=== PATIENT | female | born 1935 | race Hispanic/Latino ===

== ENCOUNTER 2017-08-18 08:38 | Emergency (ER) | payer MEDICARE ==
[~2017-08-18 08:38] MED LIST: AMLO10TA2 PO; ESOM40CA PO; HYDR-2132 PO; LEVO25TA54 PO; SIMV20TA6 PO; WARF2TAB57 PO
== END 2017-08-18 09:45 | disposition home or self-care (01) ==
LOC: EDH 08:38
DX: S27.898A Other injury of other specified intrathoracic organs, initial encounter (principal); E07.9 Disorder of thyroid, unspecified; I10 Essential (primary) hypertension; E78.5 Hyperlipidemia, unspecified; W01.0XXA Fall on same level from slipping, tripping and stumbling without subsequent striking against object, initial encounter; Y93.01 Activity, walking, marching and hiking; Y92.096 Garden or yard of other non-institutional residence as the place of occurrence of the external cause; Y99.8 Other external cause status
CPT/HCPCS: 71100

== ENCOUNTER 2018-03-21 12:17 | Emergency (ER) | payer MEDICARE ==
[~2018-03-21 12:17] MED LIST changes: -AMLO10TA2 PO; +AMLO10TA6 PO
== END 2018-03-21 14:37 | disposition home or self-care (01) ==
LOC: EDH 12:17
DX: M25.512 Pain in left shoulder (principal); E78.5 Hyperlipidemia, unspecified; I10 Essential (primary) hypertension; E07.9 Disorder of thyroid, unspecified; Z90.710 Acquired absence of both cervix and uterus; Z98.890 Other specified postprocedural states

== ENCOUNTER 2018-07-20 12:00 | Emergency (ER) | payer MEDICARE ==
[~2018-07-20 12:00] MED LIST changes: -AMLO10TA6 PO; +AMLO10TA7 PO
[2018-07-20] MEDS ORDERED: HYDROCODONE/ACETAMINOPHEN 10/325 MG TAB ONE (12:35)
== END 2018-07-20 15:48 | disposition home or self-care (01) ==
LOC: EDH 12:00
DX: S20.211A Contusion of right front wall of thorax, initial encounter (principal); S60.212A Contusion of left wrist, initial encounter; E78.5 Hyperlipidemia, unspecified; I10 Essential (primary) hypertension; E07.9 Disorder of thyroid, unspecified; W17.89XA Other fall from one level to another, initial encounter; Y93.01 Activity, walking, marching and hiking; Y92.89 Other specified places as the place of occurrence of the external cause; Y99.8 Other external cause status
CPT/HCPCS: 29125; 71250; 73110

== ENCOUNTER 2019-05-17 07:46 | Emergency (ER) | payer MEDICARE ==
[~2019-05-17 07:46] MED LIST changes: +SIMV-43 PO; -SIMV20TA6 PO
[2019-05-17 08:29] LABS: BASOPHILS % (AUTO) 0.6 % (0.0-5.0); EOSINOPHILS % (AUTO) 3.4 % (0.0-8.0); HEMATOCRIT 40.1 % (36-48); LYMPHOCYTES % (AUTO) 21.5 % (21.0-51.0); MEAN CORPUSCULAR HEMOGLOBIN 27.6 pg (27.0-33.0); MEAN CORPUSCULAR HGB CONC 32.9 g/dL (32.0-36.0); MEAN CORPUSCULAR VOLUME 83.7 fL (79-99); MONOCYTES % (AUTO) 6.4 % (3.0-13.0); NEUTROPHILS % (AUTO) 68.1 % (40.0-77.0); NUCLEATED RED BLOOD CELLS 0.1 % (0.0-0.19); PLATELET COUNT (AUTO) 226 K/uL (130-400); RED CELL DISTRIBUTION WIDTH 15.6 % (11.0-15.5); WHITE BLOOD COUNT (AUTO) 9.6 K/uL (4.8-10.8)
[2019-05-17] MEDS ORDERED: KETOROLAC TROMETHAMINE 30MG/ML ONE (08:29)
[2019-05-17] MEDS ORDERED: DIAZEPAM 2 MG TAB ONE (08:29)
[2019-05-17 08:37] LABS: CREATININE 0.6 mg/dL (0.5-1.5); POTASSIUM 3.9 mmol/L (3.5-5.1)
[2019-05-17 08:42] LABS: ALBUMIN 3.6 g/dL (3.5-5.0); BILIRUBIN,DIRECT 0.1 mg/dL (0.0-0.3); BILIRUBIN,TOTAL 0.4 mg/dL (0.2-1.0); TOTAL PROTEIN, SERUM 6.8 g/dL (6.0-8.3)
[2019-05-17 08:47] LABS: APPEARANCE,URINE Clear (CLEAR); BILIRUBIN,URINE Negative (NEGATIVE); COLOR,URINE Yellow (YELLOW); GLUCOSE, URINE (UA) Negative (NEGATIVE); KETONES,URINE Negative (NEGATIVE); LEUKOCYTE ESTERASE ,URINE Moderate (NEGATIVE); NITRATE,URINE Negative (NEGATIVE); OCCULT BLOOD,URINE Negative (NEGATIVE); PROTEIN,URINE Trace mg/dL (NEGATIVE)
[2019-05-17 09:25] LABS: BACTERIA,URINE Many /HPF (None Seen)
[2019-05-17 09:26] LABS: RBC,URINE 0-1 /HPF (0-1)
[2019-05-17] MEDS ORDERED: IOHEXOL-350 50ML VIAL IV ONE (10:11)
== END 2019-05-17 11:10 | disposition home or self-care (01) ==
LOC: EDH 07:46
DX: M54.6 Pain in thoracic spine (principal); J02.9 Acute pharyngitis, unspecified; R05 Cough; E78.5 Hyperlipidemia, unspecified; I10 Essential (primary) hypertension; E07.9 Disorder of thyroid, unspecified; Z90.710 Acquired absence of both cervix and uterus; Z72.0 Tobacco use
CPT/HCPCS: 36415; 71045; 71260; 80048; 80076; 81001; 82550; 84484; 85025; 93005; 96374; 99285; J1885; Q9967

== ENCOUNTER 2020-02-18 12:53 | Emergency (ER) | payer MEDICARE ==
[2020-02-18] MEDS ORDERED: KETOROLAC TROMETHAMINE 15MG/ML ONE (13:32)
[2020-02-18 14:01] LABS: BASOPHILS % (AUTO) 0.7 % (0.0-5.0); EOSINOPHILS % (AUTO) 1.2 % (0.0-8.0); MEAN CORPUSCULAR HEMOGLOBIN 27.7 pg (27.0-33.0); MEAN CORPUSCULAR HGB CONC 31.7 g/dL (32.0-36.0); MEAN CORPUSCULAR VOLUME 87.5 fL (79-99); MONOCYTES % (AUTO) 6.7 % (3.0-13.0); NEUTROPHILS % (AUTO) 65.3 % (40.0-77.0); PLATELET COUNT (AUTO) 342 K/uL (130-400); RED CELL DISTRIBUTION WIDTH 17.7 % (11.0-15.5); WHITE BLOOD COUNT (AUTO) 12.2 K/uL (4.8-10.8)
[2020-02-18 14:02] LABS: APPEARANCE,URINE Clear (CLEAR); BILIRUBIN,URINE Negative (NEGATIVE); COLOR,URINE Yellow (YELLOW); GLUCOSE, URINE (UA) Negative (NEGATIVE); KETONES,URINE Negative (NEGATIVE); LEUKOCYTE ESTERASE ,URINE Moderate (NEGATIVE); NITRATE,URINE Negative (NEGATIVE); OCCULT BLOOD,URINE Negative (NEGATIVE); PROTEIN,URINE Negative (NEGATIVE); UROBILINOGEN,URINE 0.2 mg/dL (0.2-1.0)
[2020-02-18 14:11] LABS: BACTERIA,URINE Rare /HPF (None Seen); RBC,URINE None Seen /HPF (0-1)
[2020-02-18 14:12] LABS: CREATININE 0.6 mg/dL (0.5-1.5); POTASSIUM 3.8 mmol/L (3.5-5.1)
[2020-02-18 14:17] LABS: ALBUMIN 4.1 g/dL (3.5-5.0); BILIRUBIN,TOTAL 0.5 mg/dL (0.2-1.0); TOTAL PROTEIN, SERUM 7.6 g/dL (6.0-8.3)
[2020-02-18] MEDS ORDERED: CEFTRIAXONE SODIUM 1 GM ONE (14:31)
== END 2020-02-18 14:55 | disposition home or self-care (01) ==
LOC: EDH 12:53
DX: N13.6 Pyonephrosis (principal); E78.5 Hyperlipidemia, unspecified; I10 Essential (primary) hypertension; Z90.49 Acquired absence of other specified parts of digestive tract; Z90.710 Acquired absence of both cervix and uterus
CPT/HCPCS: 36415; 74176; 80053; 81001; 85025; 87088; 96374; 96375; 99284; J0696; J1885

== ENCOUNTER → 2020-06-07 | Outpatient (CLI) | payer OTHER, MEDICARE ==
[~2020-06-07] MED LIST changes: +AMLO-258 PO; -AMLO10TA7 PO; +REGADENOSON 0.4 MG/5 ML PF SYG IVP SCH
== END | disposition home or self-care (01) ==
LOC: SHCH 08:42
PROVIDERS: ATTEND Internal Medicine Cardiovascular Disease
DX: I25.10 Atherosclerotic heart disease of native coronary artery without angina pectoris (principal)
CPT/HCPCS: 78452; 93017; 96374; A9500 ×2; J2785

== ENCOUNTER 2020-06-12 09:00 | Observation (INO) | payer OTHER, MEDICARE ==
[~2020-06-12] VITALS: Ht 152.4 cm; Wt 73.8 kg
[~2020-06-12 09:00] MED LIST changes: -AMLO-258 PO; -ESOM40CA PO; -HYDR-2132 PO; -REGADENOSON 0.4 MG/5 ML PF SYG IVP SCH; -WARF2TAB57 PO
[2020-06-12 11:49] LABS: BASOPHILS % (AUTO) 0.7 % (0.0-5.0); EOSINOPHILS % (AUTO) 2.8 % (0.0-8.0); HEMATOCRIT 42.3 % (36-48); LYMPHOCYTES % (AUTO) 24.1 % (21.0-51.0); MEAN CORPUSCULAR HEMOGLOBIN 26.9 pg (27.0-33.0); MEAN CORPUSCULAR HGB CONC 31.7 g/dL (32.0-36.0); MEAN CORPUSCULAR VOLUME 84.8 fL (79-99); MONOCYTES % (AUTO) 6.5 % (3.0-13.0); NEUTROPHILS % (AUTO) 65.3 % (40.0-77.0); PLATELET COUNT (AUTO) 232 K/uL (130-400); RED BLOOD CELL COUNT(AUTO) 4.99 MIL/uL (4.00-5.50); RED CELL DISTRIBUTION WIDTH 14.4 % (11.0-15.5); WHITE BLOOD COUNT (AUTO) 10.1 K/uL (4.8-10.8)
[2020-06-12 11:58] LABS: CREATININE 0.8 mg/dL (0.5-1.5); POTASSIUM 4.1 mmol/L (3.5-5.1)
[2020-06-12 12:16] LABS: INR 0.91 (0.85-1.15); PROTHROMBIN TIME 9.9 SEC (9.6-11.6)
[2020-06-12 12:28] LABS: APPEARANCE,URINE Clear (CLEAR); BILIRUBIN,URINE Negative (NEGATIVE); COLOR,URINE Yellow (YELLOW); GLUCOSE, URINE (UA) Negative (NEGATIVE); KETONES,URINE Negative (NEGATIVE); LEUKOCYTE ESTERASE ,URINE Small (NEGATIVE); NITRATE,URINE Negative (NEGATIVE); OCCULT BLOOD,URINE Negative (NEGATIVE); PROTEIN,URINE Negative (NEGATIVE)
[2020-06-12 12:39] LABS: BACTERIA,URINE Rare /HPF (None Seen); RBC,URINE 0-1 /HPF (0-1); SQUAMOUS EPITHELIAL CELL,UR Rare /HPF (0-2)
[2020-06-18 11:53] VITALS: BP 190/86
[2020-06-18] MEDS ORDERED: ESOM40CA54 PO (12:21)
[2020-06-18] MEDS ORDERED: LISI-613 PO (12:21)
[2020-06-19] VITALS (20 sets, daily range): BP systolic 101–163; BP diastolic 51–82
[2020-06-19] MEDS: CEFAZOLIN SODIUM 1 GM VIAL IVP SCH ×3 (06:00→23:33)
[2020-06-19] MEDS ORDERED: LACTATED RINGERS 1000ML 1,000 ML IV ONE (10:57)
[2020-06-19] MEDS ORDERED: VANCOMYCIN 1.5 GM in SODIUM CHLORIDE 0.9% 250 ML IV SCH (11:15)
[2020-06-19] MEDS ORDERED: ACETAMINOPHEN EXTRA STRENGTH 500 MG TABLET ONE (15:17)
[2020-06-19] MEDS ORDERED: KETOROLAC TROMETHAMINE 15MG/ML ONE (15:17)
[2020-06-19] MEDS ORDERED: CELECOXIB 200 MG CAP ONE (15:18)
[2020-06-19] MEDS ORDERED: SUCCINYLCHOLINE CHLORIDE 20 MG/ML 10 ML VIAL ONE (15:22)
[2020-06-19] MEDS ORDERED: LIDOCAINE PF 2% 5ML ABBOJECT ONE (15:22)
[2020-06-19] MEDS ORDERED: PROPOFOL 10 MG/ML 20ML VIAL IV ONE (15:23)
[2020-06-19] MEDS ORDERED: ROCURONIUM 10MG/1ML SYR 10 MG/ML ML ONE (15:23)
[2020-06-19] MEDS ORDERED: ROPIVACAINE 0.5% 5MG/ML 30ML IJ ONE (15:24)
[2020-06-19] MEDS ORDERED: ACETAMINOPHEN EXTRA STRENGTH 500 MG TABLET PO ONE (15:27)
[2020-06-19] MEDS ORDERED: MIDAZOLAM HCL 1 MG/ML 2ML VIAL ONE (16:28)
[2020-06-19] MEDS ORDERED: FENTANYL CITRATE PF 50 MCG/1 ML 2ML VIAL ONE ×2 (16:29→17:29)
[2020-06-19] MEDS ORDERED: VANCOMYCIN HCL 1 GM VIAL ONE (16:37)
[2020-06-19] MEDS ORDERED: TRANEXAMIC ACID 1000MG/10ML ONE ×2 (16:52→18:45)
[2020-06-19] MEDS ORDERED: DEXAMETHASONE SOD PHOSPHATE 10MG/ML 1ML VIAL ONE (17:11)
[2020-06-19] MEDS ORDERED: VANCOMYCIN HCL 1 GM VIAL IRRIG ONE ×2 (17:25)
[2020-06-19] MEDS ORDERED: KETOROLAC TROMETHAMINE 15MG/ML IV PRN (18:30)
[2020-06-19] MEDS ORDERED: LIDOCAINE HCL-MPF 1% 2ML VIAL IV PRN (18:30)
[2020-06-19] MEDS: ACETAMINOPHEN EXTRA STRENGTH 500 MG TABLET PO SCH (18:30)
[2020-06-19] MEDS ORDERED: CALCIUM CARBONATE 500 MG TABLET PO PRN (18:30)
[2020-06-19] MEDS ORDERED: POTASSIUM CHLORIDE 20 MEQ ERTAB PO PRN (18:30)
[2020-06-19] MEDS ORDERED: ONDANSETRON HCL 4 MG/2 ML VIAL IVP PRN (18:30)
[2020-06-19] MEDS: SODIUM CHLORIDE 0.9% 1000ML 1,000 ML IV SCH (18:30)
[2020-06-19] MEDS ORDERED: POTASSIUM CHLORIDE 20MEQ/100ML 100 ML IV PRN (18:30)
[2020-06-19] MEDS ORDERED: TEMAZEPAM 15 MG CAPSULE PO PRN (18:30)
[2020-06-19] MEDS ORDERED: DiphenhydrAMINE HCL 50 MG/ML VIAL IVP PRN (18:30)
[2020-06-19] MEDS ORDERED: OXYCODONE HCL 5 MG TAB PO PRN (18:30)
[2020-06-19] MEDS ORDERED: FERROUS FUMARATE 324 MG TABLET PO PRN (18:30)
[2020-06-19] MEDS ORDERED: TRAMADOL HCL 50 MG TABLET PO PRN (18:30)
[2020-06-19] MEDS ORDERED: POTASSIUM CHLORIDE 10% ELIXIR 20 MEQ/15 ML UDCUP PO PRN (18:30)
[2020-06-19] MEDS ORDERED: GLYCOPYRROLATE 1 MG/5 ML SYRINGE ONE (18:32)
[2020-06-19] MEDS ORDERED: NEOSTIGMINE 5MG/5ML SYR IV ONE (18:32)
[2020-06-19] MEDS ORDERED: MEPERIDINE-PF 25 MG/ML SYG ONE (19:28)
[2020-06-19] MEDS: PREGABALIN 25 MG CAP PO SCH (20:37)
[2020-06-19] MEDS: ASPIRIN 81MG TAB.CHEW PO SCH (20:37)
[2020-06-19] MEDS: OXYCODONE HCL 5 MG TAB PO PRN (20:38)
[2020-06-19] MEDS: CELECOXIB 200 MG CAP PO SCH (20:39)
[2020-06-19] MEDS ORDERED: FAMOTIDINE 20MG TAB 20 MG TAB PO SCH (21:00)
[2020-06-19] MEDS ORDERED: SIMVASTATIN 20 MG TABLET PO SCH (21:00)
[2020-06-19] MEDS: VANCOMYCIN 1GM+NS 250ML 250 ML IV SCH (23:35)
[2020-06-20] MEDS: ACETAMINOPHEN EXTRA STRENGTH 500 MG TABLET PO SCH (02:30)
[2020-06-20 03:45] LABS: HEMATOCRIT 35.5 % (36-48); MEAN CORPUSCULAR HEMOGLOBIN 26.7 pg (27.0-33.0); MEAN CORPUSCULAR HGB CONC 31.5 g/dL (32.0-36.0); MEAN CORPUSCULAR VOLUME 84.7 fL (79-99); RED BLOOD CELL COUNT(AUTO) 4.19 MIL/uL (4.00-5.50); RED CELL DISTRIBUTION WIDTH 14.5 % (11.0-15.5)
[2020-06-20 03:55] LABS: CREATININE 0.7 mg/dL (0.5-1.5); POTASSIUM 4.2 mmol/L (3.5-5.1)
[2020-06-20] MEDS: OXYCODONE HCL 5 MG TAB PO PRN ×2 (03:57→15:11)
[2020-06-20 04:00] VITALS: BP 146/80
[2020-06-20] MEDS: SODIUM CHLORIDE 0.9% 1000ML 1,000 ML IV SCH ×2 (04:30→14:30)
[2020-06-20] MEDS ORDERED: LEVOTHYROXINE 25 MCG TABLET PO SCH (06:30)
[2020-06-20] MEDS: CEFAZOLIN SODIUM 1 GM VIAL IVP SCH (07:30)
[2020-06-20] MEDS ORDERED: PANTOPRAZOLE SODIUM 40 MG TABLET.DR PO SCH (09:00)
[2020-06-20] MEDS ORDERED: LISINOPRIL 10 MG TABLET PO SCH (09:00)
[2020-06-20] MEDS ORDERED: POLYETHYLENE GLYCOL 3350 17 GM POWD.PACK PO SCH (09:00)
[2020-06-20] MEDS: ASPIRIN 81MG TAB.CHEW PO SCH (09:16)
[2020-06-20] MEDS: PREGABALIN 25 MG CAP PO SCH (09:16)
[2020-06-20] MEDS: CELECOXIB 200 MG CAP PO SCH (09:16)
[2020-06-20 11:02] VITALS: BP 137/59
[2020-06-20] MEDS ORDERED: CEFAZOLIN SODIUM 1 GM VIAL ONE (11:36)
[2020-06-20] MEDS ORDERED: ACETAMINOPHEN EXTRA STRENGTH 500 MG TABLET PO SCH (14:00)
[2020-06-20] MEDS: VANCOMYCIN 1GM+NS 250ML 250 ML IV SCH (15:12)
[2020-06-20 16:36] VITALS: BP 167/73
[2020-06-20] MEDS ORDERED: HYDR-4060 PO (18:18)
[2020-06-20] MEDS ORDERED: ASPI-1005 PO (18:18)
[2020-06-22] MEDS ORDERED: BISACODYL 10 MG SUPP.RECT RC PRN (18:30)
== END 2020-06-20 20:50 | disposition home health service (06) ==
LOC: EDSTATUS 09:00 → INTOOBSV 06-19 09:57 → DAHIP 06-19 09:57 → 3AH 06-19 20:03
PROVIDERS: ADMIT Orthopaedic Surgery; ATTEND Orthopaedic Surgery
DX: M17.12 Unilateral primary osteoarthritis, left knee (principal); Z20.828 Contact with and (suspected) exposure to other viral communicable diseases; D64.9 Anemia, unspecified; M23.8X2 Other internal derangements of left knee; E78.00 Pure hypercholesterolemia, unspecified; I10 Essential (primary) hypertension; Z96.651 Presence of right artificial knee joint; Z98.41 Cataract extraction status, right eye; Z98.42 Cataract extraction status, left eye; Z90.710 Acquired absence of both cervix and uterus; Z79.899 Other long term (current) drug therapy
CPT/HCPCS: 27447; 36415 ×2; 80048 ×2; 81001; 85025; 85027; 85610; 87077; 87088; 87186; 87641 ×2; 88305; 88311; 96361; 96365; 96366; 96375; 96376; 97039 ×2; 97116 ×2; 97161; 97530; A4215; A4221; A4222; A4223; A4600; A4649 ×3; A4663; A4930; A9272; C1776; G0378 ×25; G8978; G8979; G8980; G8981; G8982; G8983; J0330; J0690 ×3; J1100; J1885; J2001; J2175; J2250; J2704; J2710; J2795; J3010 ×2; J3370 ×6; J3490 ×3; J7050; J7120 ×2; U0003

== ENCOUNTER 2020-10-07 16:37 | Emergency (ER) | payer OTHER, MEDICARE ==
[~2020-10-07 16:37] MED LIST changes: +ASPI-1005 PO; +ESOM40CA54 PO; +HYDR-4060 PO; +LISI20TA24 PO
== END 2020-10-07 18:14 | disposition home or self-care (01) ==
LOC: EDH 16:37
DX: J02.9 Acute pharyngitis, unspecified (principal)
CPT/HCPCS: 87880

== ENCOUNTER 2021-08-01 08:56 | Emergency (ER) | payer OTHER, MEDICARE ==
[~2021-08-01] VITALS: Ht 152.4 cm; Wt 77.1 kg
[2021-08-01 10:12] VITALS: BP 168/84
== END 2021-08-01 11:05 | disposition home or self-care (01) ==
LOC: EDH 08:56
DX: S80.02XA Contusion of left knee, initial encounter (principal); E11.9 Type 2 diabetes mellitus without complications; E78.00 Pure hypercholesterolemia, unspecified; I10 Essential (primary) hypertension; Z79.82 Long term (current) use of aspirin; Z79.899 Other long term (current) drug therapy; W18.39XA Other fall on same level, initial encounter; Y93.89 Activity, other specified; Y92.89 Other specified places as the place of occurrence of the external cause; Y99.8 Other external cause status
CPT/HCPCS: 73564

== ENCOUNTER 2021-09-02 08:31 | Emergency (ER) | payer OTHER, MEDICARE ==
[~2021-09-02] VITALS: Ht 154.9 cm; Wt 74.8 kg
[2021-09-02 09:19] LABS: BASOPHILS % (AUTO) 0.5 % (0.0-5.0); EOSINOPHILS % (AUTO) 1.8 % (0.0-8.0); HEMATOCRIT 39.8 % (36-48); LYMPHOCYTES % (AUTO) 15.6 % (21.0-51.0); MEAN CORPUSCULAR HEMOGLOBIN 25.4 pg (27.0-33.0); MEAN CORPUSCULAR HGB CONC 30.7 g/dL (32.0-36.0); MEAN CORPUSCULAR VOLUME 82.7 fL (79-99); MONOCYTES % (AUTO) 6.2 % (3.0-13.0); NEUTROPHILS % (AUTO) 75.4 % (40.0-77.0); PLATELET COUNT (AUTO) 201 K/uL (130-400); RED BLOOD CELL COUNT(AUTO) 4.81 MIL/uL (4.00-5.50); RED CELL DISTRIBUTION WIDTH 15.2 % (11.0-15.5); WHITE BLOOD COUNT (AUTO) 9.1 K/uL (4.8-10.8)
[2021-09-02 09:26] LABS: APPEARANCE,URINE CLEAR (CLEAR); BILIRUBIN,URINE NEGATIVE (NEGATIVE); COLOR,URINE YELLOW (YELLOW); GLUCOSE, URINE (UA) NEGATIVE (NEGATIVE); KETONES,URINE NEGATIVE (NEGATIVE); LEUKOCYTE ESTERASE ,URINE NEGATIVE (NEGATIVE); NITRATE,URINE NEGATIVE (NEGATIVE); OCCULT BLOOD,URINE NEGATIVE (NEGATIVE); PROTEIN,URINE NEGATIVE (NEGATIVE); UROBILINOGEN,URINE 0.2 mg/dL (0.2-1.0)
[2021-09-02 09:28] LABS: CREATININE 0.7 mg/dL (0.5-1.5); POTASSIUM 3.4 mmol/L (3.5-5.1)
[2021-09-02 09:34] LABS: ALBUMIN 3.6 g/dL (3.5-5.0); BILIRUBIN,TOTAL 0.5 mg/dL (0.2-1.0); TOTAL PROTEIN, SERUM 6.6 g/dL (6.0-8.3)
[2021-09-02] MEDS ORDERED: MAGNESIUM CITRATE 296 ML SOLUTION PO ONE (10:30)
[2021-09-02] MEDS ORDERED: POLY17PO4 PO (10:31)
[2021-09-02] MEDS ORDERED: MAGNESIUM CITRATE 296 ML SOLUTION ONE (10:39)
[2021-09-02 11:11] VITALS: BP 160/75
== END 2021-09-02 11:15 | disposition home or self-care (01) ==
LOC: EDH 08:31
DX: K59.00 Constipation, unspecified (principal); E03.9 Hypothyroidism, unspecified; E78.00 Pure hypercholesterolemia, unspecified; I10 Essential (primary) hypertension; K21.9 Gastro-esophageal reflux disease without esophagitis; Z79.82 Long term (current) use of aspirin; Z79.899 Other long term (current) drug therapy
CPT/HCPCS: 36415; 74018; 80053; 81003; 83690; 84484; 85025; 93005